=== PATIENT | female | born 1980 | race Caucasian/White ===

== ENCOUNTER 2021-02-11 09:50 | Emergency (ER) | payer BC ==
[2021-02-11 10:52] LABS: HEMOGLOBIN 12.6 gm/dl (12.3-15.3); RED BLOOD COUNT 4.82 M/UL (4.00-5.10); WHITE BLOOD COUNT 6.9 K/UL (4.5-11.0)
[2021-02-11 11:01] LABS: BUN/CREATININE RATIO 13 (0-10)
[2021-02-11] MEDS ORDERED: CEPHALEXIN500 M1 PO (11:18)
[2021-02-11] MEDS ORDERED: BACTRIM DS TAB1 EACH PO (11:18)
[2021-02-11] MEDS ORDERED: IBUPROFEN800 MG PO (11:18)
== END 2021-02-11 11:26 | disposition home or self-care (01) ==
LOC: ER1 09:50
PROVIDERS: Emergency Medicine
DX: L03.114 Cellulitis of left upper limb (principal); J45.909 Unspecified asthma, uncomplicated
CPT/HCPCS: 80053; 85025; 87040; 96374; 96375; 99283; J0696; J2270; J2405